=== PATIENT | male | born 1990 | race African-American/Black ===

== ENCOUNTER 2017-01-01 16:20 | Emergency (ER) | payer MEDICAID, OTHER ==
[~2017-01-01] VITALS: Ht 175.3 cm; Wt 95.6 kg
[2017-01-01 16:21] VITALS: BP 123/78
[2017-01-01] MEDS ORDERED: PROPARACAINE OPHTH 0.5%, 15ML LEFTEYE ONE (17:00)
[2017-01-01] MEDS ORDERED: FLUORESCEIN OPHTHALMIC 1 MG STRIP LEFTEYE ONE (17:00)
[2017-01-01] MEDS ORDERED: PROPARACAINE OPHTH 0.5%, 15ML ONE (17:26)
[2017-01-01] MEDS ORDERED: FLUORESCEIN OPHTHALMIC 1 MG STRIP ONE (17:26)
[2017-01-01] MEDS ORDERED: MOXIFLOXACIN OPHTH O.5%, 3ML RIGHTEYE ONE (17:30)
== END 2017-01-01 19:38 | disposition home or self-care (01) ==
LOC: ED 19:00
DX: S05.02XA Injury of conjunctiva and corneal abrasion without foreign body, left eye, initial encounter (principal); Z77.098 Contact with and (suspected) exposure to other hazardous, chiefly nonmedicinal, chemicals; H10.212 Acute toxic conjunctivitis, left eye; X58.XXXA Exposure to other specified factors, initial encounter; Y93.89 Activity, other specified; Y92.89 Other specified places as the place of occurrence of the external cause; Y99.9 Unspecified external cause status
CPT/HCPCS: 99283

== ENCOUNTER 2017-04-12 07:44 | Emergency (ER) | payer MEDICAID, OTHER ==
[~2017-04-12] VITALS: Ht 175.3 cm; Wt 98.4 kg
[2017-04-12 07:46] VITALS: BP 145/88
[2017-04-12] MEDS ORDERED: PROPARACAINE OPHTH 0.5%, 15ML ONE (08:05)
[2017-04-12] MEDS ORDERED: FLUORESCEIN OPHTHALMIC 1 MG STRIP ONE (08:05)
== END 2017-04-12 09:05 | disposition home or self-care (01) ==
LOC: ED 08:50
DX: S05.02XA Injury of conjunctiva and corneal abrasion without foreign body, left eye, initial encounter (principal); W22.8XXA Striking against or struck by other objects, initial encounter; Y93.89 Activity, other specified; Y92.89 Other specified places as the place of occurrence of the external cause; Y99.8 Other external cause status
CPT/HCPCS: 99283